=== PATIENT | male | born 1990 | race Caucasian/White ===

== ENCOUNTER 2019-03-23 13:49 | Emergency (ER) | payer SELFPAY ==
[2019-03-23 13:52] VITALS: BP 142/116; PULSE 82; RESP 18; TEMP 36.8; O2SAT 100
[2019-03-23] MEDS: Acetaminophen 500 MG TAB 1000 MG PO (14:01)
--- NOTE | 2019-03-23 14:19 | DI.RAD_ITS ---
EXAM: XR WRIST RT COMPLETE INDICATION: right lower arm crush injury. COMPARISON: XR HAND RT COMPLETE from 03/23/2019 TECHNIQUE: 2D digital imaging was performed. FINDINGS: THREE VIEWS OF THE HAND AND THREE VIEWS OF THE WRIST WERE OBTAINED. NO FRACTURE IS SEEN
--- NOTE | 2019-03-23 14:48 | W.ED.GENAD ---
Discharge Plan Disposition Patient Disposition: HOME Condition: Good Discharge Details Chief Complaint: Orthopedic Clinical Impression: Crush injury Primary Care Provider: Steven Watkins ED Provider: Luba Alcantar Home Meds and New Rx's Prescriptions: No Action No Known Home Meds RF: 0 Discharge Instructions Instructions: Crush Injury (ED) Additional Instructions: Rest. Activities as tolerated. Elevate injury to prevent swelling. Ice to the area of discomfort for 15 min. 3-5 times daily. Motrin every 8 hours with food or Tylenol every 6 hours for soreness if needed over the counter for comfort. Followup with orthopedic doctor as discussed if not improving in one week. Return for any worsening or concerns sooner if needed. Stand Alone Forms: Work Release Discharge Data Discharge Date/Time-TO BE ENTERED AT DEPARTURE: 03/23/19 16:10 Medical Decision Making Patient resents with a crush injury to his hand which she sustained at work. Patient ultimately has x-rays which are normal and no identifiable fracture present. Patient with abrasions to the dorsal aspect of the hand which I discussed appropriate care and management. Patient offered splinting devices however would prefer Soy wrap alone. I did provide work note to excuse 5 days of work or minimize use of hand for the next 5 days. Patient agrees with plan of care. Aric discussed. Patient advised for persistence of pain difficulty with closing hand or opening hand normally or associated numbness or tingling have immediate reevaluation. Patient reports his understanding. HPI General Date/Time Provider Initiated Documentation: 03/23/19 14:48. HPI Narrative: Patient presents after crushing his right hand against a tree versus a bucket truck bucket. Patient reports crush injury to his right hand. Patient reports abrasions noted to the dorsal hand. Patient denies numbness, tingling or weakness. 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 Patient's tetanus is up-to-date in the last few months. No other injuries or reported concerns. Injury occurred at work. Related Data Home Medications Medication Instructions Recorded Confirmed Unknown [No Known Home Meds] 03/23/19 03/23/19 Allergies Allergy/AdvReac Type Severity Reaction Status Date / Time No Known Allergies Allergy Unverified 03/23/19 13:56 General Stated Complaint: Orthopedic CHANTALE: 4 Review of Systems Review of Systems Narrative: CONSTITUTIONAL: The patient denies fevers, chills. EYES: Denies vision changes, blurry vision, or eye pain. ENT: Denies hearing changes, tinnitus, vertigo, sore throat. CARDIAC: Denies chest pain, SOB. RESPIRATORY: Denies cough, sputum. Denies difficulty breathing. GASTROINTESTINAL: Denies abdominal pain, changes in bowel, vomiting or nausea. GENITOURINARY: Denies dysuria, or frequency of urination. MUSCULOSKELETAL: Hand pain. No neck or back pain. NEUROLOGIC: Denies headaches, Denies focal weakness. Denies numbness. INTEGUMENT: Denies rashes. Abrasions. PSYCHIATRIC: Denies behavior changes. Denies anxiety or depression. ENDOCRINOLOGY: Denies fatigue. PSYCHIATRY: Denies depression, agitation or anxiety [facility] Social History Smoking/Tobacco Use Status: Never Substance use type: does not use Do you feel safe at home: Yes Do you feel safe in your relationship?: Yes Exam Narrative Exam Narrative: CONST: Healthy appearing patient, in no acute distress. Well hydrated. Alert and alert. HENMT: Head nomocephalic, normal to inspection. Atraumatic. Hearing grossly normal. EYES: General normal appearance. Alignment normal. Eyelids normal. Conjunctiva normal. NECK: Normal visual inspection. FROM. Trachea midline. No Midline tenderness. CHEST: Normal insepection of the chest. RESP: Normal respiratory effort. Speaking full sentences. No cough. No audible wheezing. No retractions. CARDIO: No JVD. MUSCULOSKELETAL: Normal Gait. FROM of all extremities. Patient with an obvious crush injury to the left hand. Patient with abrasions noted to the dorsal aspect of the hand without suturable laceration. Patient with ecchymosis and swelling present. Flexion extension intact at all digits. Sensation intact distally. Pulses intact proximally and cap refill normal distally. Minimal wrist pain with palpation. No sign of injury proximal to the wrist. SKIN: Normal. Dry. No rashes. NEURO: Alert and awake. Speech clear. PSYCH: Normal affect. Cooperative. Course Vital Signs Vital signs: Vital Signs Temperature 36.8 C 03/23/19 13:52 Pulse 82 03/23/19 13:52 Respiratory Rate 18 03/23/19 13:52 Blood Pressure 142/116 H 03/23/19 13:52 Pulse Oximetry 100 03/23/19 13:52 Temperature 36.8 C 03/23/19 13:52 Pulse 82 03/23/19 13:52 Respiratory Rate 18 03/23/19 13:52 Respiratory Effort 03/23/19 14:22 Blood Pressure 142/116 H 03/23/19 13:52 Pulse Oximetry 100 03/23/19 13:52 Pain Level 7 03/23/19 13:52
--- NOTE | 2019-03-23 15:15 | NUR.NOTE ---
patient rounded on, refuses ice and motrin, patient patiently waiting for diagnostic results Nursing Note:
== END 2019-03-23 16:10 | disposition home or self-care (01) ==
PROVIDERS: Emergency Provider Physician Assistant; PCP Physician Assistant Medical
DX: S67.21XA Crushing injury of right hand, initial encounter (principal); S60.511A Abrasion of right hand, initial encounter; W31.89XA Contact with other specified machinery, initial encounter; Y99.0 Civilian activity done for income or pay
CPT/HCPCS: 99283; 73110; 73130